=== PATIENT | female | born 1955 | race Caucasian/White ===

== ENCOUNTER 2018-10-31 13:51 | Inpatient (IN) ==
[2018-10-31] MEDS ORDERED: CEFUROXIME INJ 1,500 MG in SODIUM CHLORIDE 0.9% 100 ML IV ONE (16:11)
[2018-10-31] MEDS ORDERED: SODIUM CHLORIDE 0.9% 1,000 ML IV SCH (16:30)
[2018-10-31 17:21] LABS: Basophils # 0.1 10*3/uL (0.0-0.2); Basophils % 0.8 % (0.0-0.8); Eosinophils # 0.4 10*3/uL (0.0-0.87); Eosinophils % 4.6 % (0.00-10.9); Hemoglobin 13.8 GM/DL (12.0-16.0); Immature Granulocytes % 0.4 %; Immature Granulocytes Absolute 0.03 #; Lymphocytes # 2.2 10*3/uL (1.4-4.0); Mean Corpuscular HGB Conc 31.4 GM/DL (32-36); Mean Corpuscular Hemoglobin 28 PG (27-34); Mean Corpuscular Volume 88.5 FL (87-102); Mean Platelet Volume 9.8 FL (9.6-12.0); Monocytes # 0.6 10*3/uL (0.11-0.8); Monocytes % 8.3 % (1.7-12.7); Neutrophils # 4.4 10*3/uL (1.4-7.4); Neutrophils % 56.9 % (38.7-73.9); Platelet Count 318 T/CUMM (130-400); Red Blood Count 4.97 MC/CUMM (3.8-5.5); Red Cell Distribution Width 12.9 % (9.3-17.3); White Blood Count 7.7 T/CUMM (4-12)
[2018-10-31] MEDS ORDERED: GLUCAGON 1 MG VIAL IM PRN (17:33)
[2018-10-31] MEDS ORDERED: DEXTROSE 50% 25 GM/50 ML SYRINGE IV PRN (17:33)
[2018-10-31 17:45] LABS: Albumin 4.1 G/DL (3.4-5.0); Bilirubin,Total 1.1 MG/DL (0.2-1.0); Osmolality,Calculated 278.5 MOS/KG (273-304); Potassium 3.4 MMOL/L (3.5-5.1); Total Protein 8.5 G/DL (6.4-8.3)
[2018-10-31] MEDS: CHLORHEXIDINE 4% SOLN 118 ML BOTTLE TOP SCH ×2 (17:50→23:45)
[2018-10-31] MEDS ORDERED: POTASSIUM CHLORIDE 20 MEQ TABLET PO PRN (17:51)
[2018-10-31] MEDS: NITROGLYCERIN 2% OINT 1 INCH/GM PACK TOP SCH ×2 (17:55→23:45)
[2018-10-31] MEDS: CHLORHEXIDINE 0.12% ORAL RINSE 60 ML BOTTLE SWISH/SPIT SCH (20:26)
[2018-10-31] MEDS: INSULIN LISPRO 100 UNIT/ML SUBCUT SCH (20:26)
[2018-10-31] MEDS ORDERED: DIAZEPAM 5 MG TABLET PO ONE (22:46)
[2018-11-01] MEDS ORDERED: TISSUE ADHESIVE 1 EACH APPLICATOR TOP ONE (04:50)
[2018-11-01] MEDS ORDERED: PAPAVERINE 60 MG/2 ML VIAL ONE (04:50)
[2018-11-01] MEDS ORDERED: VANCOMYCIN 1,000 MG VIAL ONE (04:51)
[2018-11-01] MEDS ORDERED: VANCOMYCIN INJ 1,000 MG in SODIUM CHLORIDE 0.9% 250 ML IV ONE (05:30)
[2018-11-01] MEDS ORDERED: HEPARIN/NACL 0.9% 2 UNITS/ML 500 ML IV ONE (05:40)
[2018-11-01] MEDS ORDERED: CALCIUM CHLORIDE 1,000 MG/10 ML VIAL IV ONE (05:40)
[2018-11-01] MEDS ORDERED: PHENYLEPHRINE DRIP 20 MG/250 ML PREMIX IV ONE (05:40)
[2018-11-01] MEDS ORDERED: ePHEDrine 50 MG/ML AMP ONE (05:41)
[2018-11-01] MEDS ORDERED: MIDAZOLAM 10 MG/2 ML VIAL ONE (05:41)
[2018-11-01] MEDS ORDERED: VECURONIUM 10 MG VIAL IV ONE (05:41)
[2018-11-01] MEDS ORDERED: ETOMIDATE 40 MG/20 ML VIAL IV ONE (05:41)
[2018-11-01] MEDS ORDERED: NITROGLYCERIN DRIP 50 MG/250 ML BOTTLE IV ONE ×2 (05:41→10:15)
[2018-11-01] MEDS ORDERED: AMINOCAPROIC ACID 5,000 MG/20 ML VIAL ONE (05:42)
[2018-11-01] MEDS ORDERED: SODIUM CHLORIDE 0.9% 1,000 ML IV ONE (05:42)
[2018-11-01] MEDS ORDERED: SODIUM CHLORIDE 0.9% 250 ML IV ONE (05:42)
[2018-11-01] MEDS ORDERED: LACTATED RINGERS 1,000 ML IV ONE (05:42)
[2018-11-01] MEDS: NITROGLYCERIN 2% OINT 1 INCH/GM PACK TOP SCH (05:45)
[2018-11-01] MEDS: CHLORHEXIDINE 4% SOLN 118 ML BOTTLE TOP SCH ×2 (05:46→09:26)
[2018-11-01] MEDS ORDERED: FAMOTIDINE 20 MG TABLET PO ONE (06:00)
[2018-11-01] MEDS ORDERED: DIAZEPAM 5 MG TABLET PO ONE (06:00)
[2018-11-01 07:54] LABS: ABG Base Excess -0.3 MMOL/L (-2.5-2.5); ABG HCO3 24.2 MMOL/L (20-26); ABG Oxygen Saturation 99.7 % (95-100); ABG PCO2 45.1 MM HG (35-48); ABG PH 7.359 (7.35-7.45); ABG TCO2 22.4 MMOL/L (23-27); Glucose Heart Surgery 221 MG/DL (74-106); Hematocrit Heart Surgery 39.8 PERCENT (37-47); Ionized Calcium Arterial 1.14 MMOL/L (1.21-1.46); PCO2 Patient Temp Arterial 45.1 MMHG; PH Patient Temp Arterial 7.359; Patient Temperature 37 CELCIUS; Potassium Heart/CVR 3.5 MMOL/L (3.5-5.1); Sodium Heart/CVR 139 MMOL/L (135-145)
[2018-11-01 08:37] LABS: Apearance,Urine CLEAR (Clear); Bilirubin,Urine Negative (Negative); Blood, Urine Negative (Negative); Glucose,Urine (UA) Negative (Negative); Granular Casts,Urine 1 /LPF (0-1); Ketones,Urine Negative (Negative); Nitrite,Urine Negative (Negative); Protein,Urine Negative; RBC,Urine 1 /HPF (0-4); Squamous Epithelial Cell,Urine Occasional /HPF (0-10); Urine Color Yellow (Yellow); Urine Specific Gravity 1.016 (1.001-1.035); Urine Urobilinogen < 2.0 EU/DL (0.2-1.0); WBC,Urine 1 /HPF (0-6)
[2018-11-01 09:11] LABS: Hematocrit Heart Surgery 23.6 PERCENT (37-47); Hemoglobin Heart Surgery 7.6 G/DL (12.0-16.0); PCO2 Patient Temp Venous 37.9 MM HG; PH Patient Temp Venous 7.448; PO2 Patient Temp Venous 36.3 MM HG; Potassium Heart/CVR 4.6 MMOL/L (3.5-5.1); VBG Base Excess 2.2 MEQ/L (0-4); VBG HCO3 26.1 MEQ/L (24-28); VBG Oxygen Saturation 72.4 %; VBG PCO2 37.9 MMHG (41-51); VBG PH 7.448; VBG PO2 36.3 MMHG (17-40)
[2018-11-01] MEDS: CHLORHEXIDINE 0.12% ORAL RINSE 60 ML BOTTLE SWISH/SPIT SCH (09:26)
[2018-11-01 09:42] LABS: Hematocrit Heart Surgery 26.4 PERCENT (37-47); Hemoglobin Heart Surgery 8.5 G/DL (12.0-16.0); PCO2 Patient Temp Venous 38.5 MM HG; PH Patient Temp Venous 7.424; PO2 Patient Temp Venous 38.6 MM HG; Potassium Heart/CVR 4.3 MMOL/L (3.5-5.1); VBG Base Excess 0.9 MEQ/L (0-4); VBG HCO3 24.9 MEQ/L (24-28); VBG Oxygen Saturation 74.2 %; VBG PCO2 38.5 MMHG (41-51); VBG PH 7.424; VBG PO2 38.6 MMHG (17-40)
[2018-11-01 09:58] LABS: ABG Base Excess -1.6 MMOL/L (-2.5-2.5); ABG HCO3 23.1 MMOL/L (20-26); ABG Oxygen Saturation 99.3 % (95-100); ABG PCO2 41.2 MM HG (35-48); ABG PH 7.367 (7.35-7.45); ABG TCO2 21.7 MMOL/L (23-27); Glucose Heart Surgery 379 MG/DL (74-106); Hematocrit Heart Surgery 29.9 PERCENT (37-47); Hemoglobin Heart Surgery 9.7 G/DL (12.0-16.0); Ionized Calcium Arterial 1.13 MMOL/L (1.21-1.46); PCO2 Patient Temp Arterial 41.2 MMHG; PH Patient Temp Arterial 7.367; Patient Temperature 37 CELCIUS; Potassium Heart/CVR 3.6 MMOL/L (3.5-5.1); Sodium Heart/CVR 132 MMOL/L (135-145)
[2018-11-01] MEDS ORDERED: DEXTROSE 5% KCL 20 MEQ 20 MEQ/1,000 ML BAG IV ONE (10:02)
[2018-11-01] MEDS ORDERED: MANNITOL 100 GM/500 ML BAG IV ONE (10:02)
[2018-11-01] MEDS ORDERED: ALBUMIN 25% 25 GM/100 ML VIAL IV ONE (10:03)
[2018-11-01] MEDS ORDERED: FUROSEMIDE 20 MG/2 ML VIAL ONE (10:03)
[2018-11-01] MEDS ORDERED: PROTAMINE SULFATE 250 MG/25 ML VIAL IV ONE (10:03)
[2018-11-01] MEDS ORDERED: methylPREDNISolone SOD SUC 1,000 MG/8 ML VIAL ONE (10:03)
[2018-11-01] MEDS ORDERED: HEPARIN 10,000 UNIT/10 ML VIAL ONE (10:03)
[2018-11-01] MEDS ORDERED: SODIUM BICARBONATE 50 MEQ/50 ML SYRINGE IV ONE (10:03)
[2018-11-01] MEDS ORDERED: MAGNESIUM SULFATE 10 GM/20 ML VIAL IV ONE (10:03)
[2018-11-01] MEDS ORDERED: PROTAMINE SULFATE 50 MG/5 ML VIAL IV ONE (10:04)
[2018-11-01] MEDS ORDERED: MAGNESIUM SULF RIDER 2 GM in PREMIX 1 EACH IV PRN (10:38)
[2018-11-01] MEDS ORDERED: CHLORHEXIDINE 4% SOLN 118 ML BOTTLE TOP PRN (10:38)
[2018-11-01] MEDS ORDERED: MAGNESIUM SULF RIDER 4 GM in PREMIX 1 EACH IV PRN (10:38)
[2018-11-01] MEDS ORDERED: ACETAMINOPHEN 650 MG SUPP RECTAL PRN (10:38)
[2018-11-01] MEDS ORDERED: MIDAZOLAM 2 MG/2 ML VIAL IV PRN (10:38)
[2018-11-01] MEDS ORDERED: DEXTROSE 50% 25 GM/50 ML VIAL IV PRN ×2 (10:38)
[2018-11-01] MEDS ORDERED: SODIUM CHLORIDE 0.9% 250 ML IV PRN (10:38)
[2018-11-01] MEDS ORDERED: CALCIUM CHLORIDE 1,000 MG/10 ML SYRINGE IV PRN (10:38)
[2018-11-01] MEDS ORDERED: METOPROLOL TARTRATE 5 MG/5 ML VIAL IV ONE ×2 (10:49→10:51)
[2018-11-01] MEDS ORDERED: NITROGLYCERIN DRIP 50 MG/250 ML BOTTLE IV PRN (10:52)
[2018-11-01] MEDS ORDERED: NITROPRUSSIDE 100 MG in DEXTROSE 5% 250 ML IV PRN (10:54)
[2018-11-01] MEDS: SODIUM CHLORIDE 0.45% 1,000 ML IV SCH ×2 (10:59→11:00)
[2018-11-01] MEDS ORDERED: DEXTROSE 50% 25 GM/50 ML SYRINGE IV PRN ×2 (11:00)
[2018-11-01] MEDS ORDERED: SEVOFLURANE 1 UNIT/15 MINUTE INH ONE (11:02)
[2018-11-01 11:20] LABS: ABG HCO3 21.1 MMOL/L (20-26); ABG Oxygen Saturation 99.6 % (95-100); ABG PCO2 42.1 MM HG (35-48); ABG PH 7.324 (7.35-7.45); ABG TCO2 19.8 MMOL/L (23-27); Glucose Heart Surgery 286 MG/DL (74-106); Hematocrit Heart Surgery 34.6 PERCENT (37-47); Hemoglobin Heart Surgery 11.2 G/DL (12.0-16.0); Potassium Heart/CVR 3.6 MMOL/L (3.5-5.1)
[2018-11-01 11:24] LABS: Basophils # 0.1 10*3/uL (0.0-0.2); Basophils % 0.6 % (0.0-0.8); Eosinophils # 0.2 10*3/uL (0.0-0.87); Eosinophils % 1.7 % (0.00-10.9); Hematocrit 33.5 VOL% (35.7-47.0); Immature Granulocytes % 0.7 %; Lymphocytes # 2.1 10*3/uL (1.4-4.0); Lymphocytes % 15.1 % (21.3-54.2); Mean Corpuscular HGB Conc 31.9 GM/DL (32-36); Mean Corpuscular Hemoglobin 28 PG (27-34); Mean Corpuscular Volume 86.8 FL (87-102); Mean Platelet Volume 10.4 FL (9.6-12.0); Monocytes # 0.7 10*3/uL (0.11-0.8); Neutrophils # 10.9 10*3/uL (1.4-7.4); Neutrophils % 76.9 % (38.7-73.9); Red Cell Distribution Width 12.9 % (9.3-17.3)
[2018-11-01 11:28] LABS: White Blood Count 14.2 T/CUMM (4-12)
[2018-11-01] MEDS: POTASSIUM CHLORIDE RIDER 20 MEQ in PREMIX 1 EACH IV PRN ×3 (11:28→17:21)
[2018-11-01 11:29] LABS: Hemoglobin 10.7 GM/DL (12.0-16.0); Platelet Count 268 T/CUMM (130-400); Red Blood Count 3.86 MC/CUMM (3.8-5.5)
[2018-11-01] MEDS: ALBUMIN 5% 12.5 GM in PREMIX 1 EACH IV PRN ×2 (11:30→11:53)
[2018-11-01 11:32] LABS: PT Patient Result 10.5 SECS; Partial Thromboplastin Time 25.9 SECS (0-40)
[2018-11-01 11:41] LABS: Blood Urea Nitrogen 6 MG/DL (7-18); Calcium 8.5 MG/DL (8.5-10.1); Glucose 280 MG/DL (74-106); Osmolality,Calculated 284.5 MOS/KG (273-304); Potassium 3.7 MMOL/L (3.5-5.1); Sodium 139 MMOL/L (136-145)
[2018-11-01] MEDS: INSULIN REGULAR DRIP 100 ML IV SCH (11:54)
[2018-11-01] MEDS ORDERED: ASPIRIN 325 MG TABLET PO ONE (11:59)
[2018-11-01] MEDS ORDERED: ASPIRIN CHEW 81 MG TABLET PO ONE (12:00)
[2018-11-01] MEDS: POTASSIUM CHLORIDE RIDER 10 MEQ in PREMIX 1 EACH IV PRN (12:16)
[2018-11-01] MEDS: INSULIN LISPRO 100 UNIT/ML SUBCUT SCH (12:17)
[2018-11-01] MEDS: MORPHINE 4 MG/1 ML VIAL IV PRN ×2 (14:13→19:59)
[2018-11-01] MEDS: INSULIN REGULAR 100 UNIT/ML IV PRN ×2 (14:13→16:11)
[2018-11-01 16:19] LABS: ABG Base Excess -4.2 MMOL/L (-2.5-2.5); ABG Oxygen Saturation 98.7 % (95-100); ABG PCO2 38.4 MM HG (35-48); ABG PH 7.346 (7.35-7.45); ABG TCO2 18.2 MMOL/L (23-27); Glucose Heart Surgery 231 MG/DL (74-106); Hematocrit Heart Surgery 43.6 PERCENT (37-47); Hemoglobin Heart Surgery 14.2 G/DL (12.0-16.0); Potassium Heart/CVR 3.3 MMOL/L (3.5-5.1)
[2018-11-01] MEDS: ONDANSETRON 4 MG/2 ML VIAL IV PRN (16:54)
[2018-11-01] MEDS ORDERED: PROMETHAZINE INJ 12.5 MG in SODIUM CHLORIDE 0.9% 50 ML IV PRN (17:46)
[2018-11-01] MEDS ORDERED: ONDANSETRON 4 MG/2 ML VIAL IV ONE (17:46)
[2018-11-01] MEDS: PROMETHAZINE 25 MG/1 ML VIAL IV PRN (18:42)
[2018-11-01] MEDS ORDERED: LACTATED RINGERS 500 ML IV ONE (19:23)
[2018-11-01] MEDS ORDERED: CHLORHEXIDINE 0.12% ORAL RINSE 60 ML BOTTLE SWISH/SPIT SCH (21:00)
[2018-11-01] MEDS: VANCOMYCIN INJ 1,000 MG in SODIUM CHLORIDE 0.9% 250 ML IV SCH (23:30)
[2018-11-02] MEDS: SODIUM CHLORIDE 0.45% 1,000 ML IV SCH ×2 (00:04→07:26)
[2018-11-02] MEDS: MORPHINE 4 MG/1 ML VIAL IV PRN ×3 (00:10→14:59)
[2018-11-02] MEDS: ONDANSETRON 4 MG/2 ML VIAL IV PRN (03:14)
[2018-11-02] MEDS ORDERED: ONDANSETRON 4 MG/2 ML VIAL IV ONE (03:28)
[2018-11-02] MEDS: INSULIN REGULAR DRIP 100 ML IV SCH ×2 (03:58→10:20)
[2018-11-02] MEDS: PROMETHAZINE 25 MG/1 ML VIAL IV PRN ×2 (04:00→10:28)
[2018-11-02 04:16] LABS: Basophils % 0.1 % (0.0-0.8); Hematocrit 31.8 VOL% (35.7-47.0); Immature Granulocytes % 0.7 %; Immature Granulocytes Absolute 0.11 #; Lymphocytes # 0.9 10*3/uL (1.4-4.0); Lymphocytes % 5.6 % (21.3-54.2); Mean Corpuscular HGB Conc 31.4 GM/DL (32-36); Mean Corpuscular Hemoglobin 28 PG (27-34); Mean Corpuscular Volume 89.1 FL (87-102); Mean Platelet Volume 10.4 FL (9.6-12.0); Monocytes % 6.9 % (1.7-12.7); Neutrophils # 13.1 10*3/uL (1.4-7.4); Neutrophils % 86.7 % (38.7-73.9); Platelet Count 246 T/CUMM (130-400); Red Blood Count 3.57 MC/CUMM (3.8-5.5); White Blood Count 15.1 T/CUMM (4-12)
[2018-11-02 04:33] LABS: Osmolality,Calculated 276.5 MOS/KG (273-304)
[2018-11-02] MEDS ORDERED: PHENOL 1.4% THROAT SPRAY 177 ML BOTTLE PO PRN (06:22)
[2018-11-02] MEDS ORDERED: FUROSEMIDE 40 MG/4 ML VIAL IV ONE (08:36)
[2018-11-02] MEDS: PANTOPRAZOLE 40 MG VIAL IV SCH (09:30)
[2018-11-02] MEDS: CARVEDILOL 3.125 MG TABLET PO SCH ×2 (09:32→22:38)
[2018-11-02] MEDS: ASPIRIN EC 325 MG TABLET PO SCH (09:32)
[2018-11-02] MEDS: FUROSEMIDE 40 MG TABLET PO SCH (09:32)
[2018-11-02] MEDS: ONDANSETRON 4 MG/2 ML VIAL IV SCH ×4 (10:10→22:38)
[2018-11-02] MEDS: VANCOMYCIN INJ 1,000 MG in SODIUM CHLORIDE 0.9% 250 ML IV SCH (11:21)
[2018-11-02] MEDS: INSULIN REGULAR 100 UNIT/ML SUBCUT SCH ×2 (12:59→18:36)
[2018-11-02] MEDS ORDERED: METOPROLOL TARTRATE 5 MG/5 ML VIAL IV ONE (13:11)
[2018-11-02] MEDS: MORPHINE 10 MG/1 ML VIAL IV PRN ×3 (18:24→23:54)
[2018-11-02] MEDS: ATORVASTATIN 40 MG TABLET PO SCH (22:38)
[2018-11-02] MEDS: PROMETHAZINE 25 MG TABLET PO PRN (22:40)
[2018-11-03] MEDS: INSULIN REGULAR 100 UNIT/ML SUBCUT SCH ×4 (01:13→18:50)
[2018-11-03] MEDS: VANCOMYCIN INJ 1,000 MG in SODIUM CHLORIDE 0.9% 250 ML IV SCH ×2 (01:22→11:01)
[2018-11-03] MEDS: ONDANSETRON 4 MG/2 ML VIAL IV SCH ×6 (04:16→21:40)
[2018-11-03 05:22] LABS: Basophils % 0.1 % (0.0-0.8); Eosinophils % 0.1 % (0.00-10.9); Hematocrit 30.8 VOL% (35.7-47.0); Hemoglobin 9.7 GM/DL (12.0-16.0); Immature Granulocytes % 0.8 %; Immature Granulocytes Absolute 0.11 #; Lymphocytes # 1.5 10*3/uL (1.4-4.0); Lymphocytes % 10.7 % (21.3-54.2); Mean Corpuscular HGB Conc 31.5 GM/DL (32-36); Mean Corpuscular Hemoglobin 28 PG (27-34); Mean Corpuscular Volume 89.5 FL (87-102); Mean Platelet Volume 10.6 FL (9.6-12.0); Monocytes # 1.4 10*3/uL (0.11-0.8); Monocytes % 10.2 % (1.7-12.7); Neutrophils % 78.1 % (38.7-73.9); Platelet Count 267 T/CUMM (130-400); Red Blood Count 3.44 MC/CUMM (3.8-5.5); Red Cell Distribution Width 13.5 % (9.3-17.3)
[2018-11-03 05:54] LABS: Calcium 8.2 MG/DL (8.5-10.1); Osmolality,Calculated 282.4 MOS/KG (273-304); Potassium 3.8 MMOL/L (3.5-5.1)
[2018-11-03] MEDS: MORPHINE 10 MG/1 ML VIAL IV PRN ×4 (06:27→21:39)
[2018-11-03] MEDS ORDERED: BISACODYL 5 MG TABLET PO PRN (09:46)
[2018-11-03] MEDS: ASPIRIN EC 325 MG TABLET PO SCH (10:44)
[2018-11-03] MEDS: FUROSEMIDE 40 MG TABLET PO SCH (10:44)
[2018-11-03] MEDS: DOCUSATE SODIUM 100 MG CAPSULE PO PRN (10:44)
[2018-11-03] MEDS: CARVEDILOL 6.25 MG TABLET PO SCH ×2 (10:45→21:39)
[2018-11-03] MEDS: PANTOPRAZOLE 40 MG VIAL IV SCH (10:46)
[2018-11-03] MEDS: METOCLOPRAMIDE 5 MG TABLET PO SCH ×2 (10:59→17:09)
[2018-11-03] MEDS: NICOTINE 21 MG/24 HR PATCH TRANSDERM SCH (17:42)
[2018-11-03] MEDS ORDERED: DICLOFENAC SODIUM 75 MG PO SCH (21:00)
[2018-11-03] MEDS: ATORVASTATIN 40 MG TABLET PO SCH (21:40)
[2018-11-03] MEDS: CARVEDILOL 3.125 MG TABLET PO SCH (21:45)
[2018-11-04] MEDS: INSULIN REGULAR 100 UNIT/ML SUBCUT SCH ×4 (01:14→18:01)
[2018-11-04] MEDS: ONDANSETRON 4 MG/2 ML VIAL IV SCH ×6 (01:57→21:21)
[2018-11-04] MEDS: MORPHINE 10 MG/1 ML VIAL IV PRN ×2 (01:57→04:30)
[2018-11-04 04:28] LABS: Basophils % 0.2 % (0.0-0.8); Eosinophils # 0.1 10*3/uL (0.0-0.87); Eosinophils % 0.4 % (0.00-10.9); Hematocrit 31.4 VOL% (35.7-47.0); Hemoglobin 9.9 GM/DL (12.0-16.0); Immature Granulocytes Absolute 0.14 #; Lymphocytes # 2.4 10*3/uL (1.4-4.0); Lymphocytes % 16.9 % (21.3-54.2); Mean Corpuscular HGB Conc 31.5 GM/DL (32-36); Mean Corpuscular Hemoglobin 28 PG (27-34); Mean Corpuscular Volume 89.5 FL (87-102); Mean Platelet Volume 10.2 FL (9.6-12.0); Monocytes # 1.4 10*3/uL (0.11-0.8); Monocytes % 9.7 % (1.7-12.7); Neutrophils # 10.3 10*3/uL (1.4-7.4); Neutrophils % 71.8 % (38.7-73.9); Platelet Count 307 T/CUMM (130-400); Red Blood Count 3.51 MC/CUMM (3.8-5.5); Red Cell Distribution Width 13.2 % (9.3-17.3); White Blood Count 14.4 T/CUMM (4-12)
[2018-11-04 04:29] LABS: Calcium 8.2 MG/DL (8.5-10.1); Osmolality,Calculated 282.5 MOS/KG (273-304); Potassium 3.6 MMOL/L (3.5-5.1)
[2018-11-04] MEDS: PANTOPRAZOLE 40 MG VIAL IV SCH (08:19)
[2018-11-04] MEDS: METOCLOPRAMIDE 5 MG TABLET PO SCH ×3 (08:19→17:22)
[2018-11-04] MEDS: CARVEDILOL 6.25 MG TABLET PO SCH ×2 (08:19→21:21)
[2018-11-04] MEDS: ASPIRIN EC 325 MG TABLET PO SCH (08:19)
[2018-11-04] MEDS: FUROSEMIDE 40 MG TABLET PO SCH (08:19)
[2018-11-04] MEDS: MORPHINE 4 MG/1 ML VIAL IV PRN ×3 (08:19→21:22)
[2018-11-04] MEDS: DOCUSATE SODIUM 100 MG CAPSULE PO PRN (08:19)
[2018-11-04] MEDS: NICOTINE 21 MG/24 HR PATCH TRANSDERM SCH (08:52)
[2018-11-04] MEDS: ATORVASTATIN 40 MG TABLET PO SCH (21:21)
[2018-11-04] MEDS: LOSARTAN 25 MG TABLET PO SCH (21:21)
[2018-11-05] MEDS: INSULIN REGULAR 100 UNIT/ML SUBCUT SCH ×4 (00:10→17:47)
[2018-11-05] MEDS: PROMETHAZINE 25 MG TABLET PO PRN (00:41)
[2018-11-05] MEDS: ONDANSETRON 4 MG/2 ML VIAL IV SCH ×7 (02:29→22:28)
[2018-11-05] MEDS: METOCLOPRAMIDE 5 MG TABLET PO SCH ×3 (06:42→15:37)
[2018-11-05] MEDS: PANTOPRAZOLE 40 MG VIAL IV SCH (08:22)
[2018-11-05] MEDS: LOSARTAN 25 MG TABLET PO SCH ×2 (08:22→22:27)
[2018-11-05] MEDS: CARVEDILOL 6.25 MG TABLET PO SCH ×2 (08:23→22:23)
[2018-11-05] MEDS: ASPIRIN EC 325 MG TABLET PO SCH (08:23)
[2018-11-05] MEDS: NICOTINE 21 MG/24 HR PATCH TRANSDERM SCH (08:23)
[2018-11-05] MEDS: FUROSEMIDE 40 MG TABLET PO SCH (08:23)
[2018-11-05] MEDS: DOCUSATE SODIUM 100 MG CAPSULE PO PRN (08:23)
[2018-11-05] MEDS: ATORVASTATIN 40 MG TABLET PO SCH (22:27)
[2018-11-06] MEDS: INSULIN REGULAR 100 UNIT/ML SUBCUT SCH ×3 (01:03→12:55)
[2018-11-06] MEDS: ONDANSETRON 4 MG/2 ML VIAL IV SCH ×3 (02:26→11:22)
[2018-11-06 05:26] LABS: Basophils # 0.1 10*3/uL (0.0-0.2); Basophils % 0.4 % (0.0-0.8); Eosinophils # 0.4 10*3/uL (0.0-0.87); Hematocrit 33.1 VOL% (35.7-47.0); Hemoglobin 10.6 GM/DL (12.0-16.0); Immature Granulocytes % 0.6 %; Immature Granulocytes Absolute 0.07 #; Lymphocytes # 2.9 10*3/uL (1.4-4.0); Lymphocytes % 24.6 % (21.3-54.2); Mean Corpuscular Hemoglobin 28 PG (27-34); Mean Corpuscular Volume 86.9 FL (87-102); Mean Platelet Volume 10.2 FL (9.6-12.0); Monocytes # 1.2 10*3/uL (0.11-0.8); Monocytes % 9.8 % (1.7-12.7); Neutrophils # 7.2 10*3/uL (1.4-7.4); Neutrophils % 61.6 % (38.7-73.9); Platelet Count 442 T/CUMM (130-400); Red Blood Count 3.81 MC/CUMM (3.8-5.5); Red Cell Distribution Width 12.8 % (9.3-17.3); White Blood Count 11.7 T/CUMM (4-12)
[2018-11-06 05:38] LABS: Calcium 8.4 MG/DL (8.5-10.1); Osmolality,Calculated 281.3 MOS/KG (273-304); Potassium 3.3 MMOL/L (3.5-5.1)
[2018-11-06] MEDS: POTASSIUM CHLORIDE RIDER 10 MEQ in PREMIX 1 EACH IV PRN ×4 (06:08→09:48)
[2018-11-06] MEDS: METOCLOPRAMIDE 5 MG TABLET PO SCH ×2 (08:10→11:22)
[2018-11-06] MEDS: PROMETHAZINE 25 MG TABLET PO PRN (08:10)
[2018-11-06] MEDS: NICOTINE 21 MG/24 HR PATCH TRANSDERM SCH (08:23)
[2018-11-06] MEDS: ASPIRIN EC 325 MG TABLET PO SCH (08:23)
[2018-11-06] MEDS: FUROSEMIDE 40 MG TABLET PO SCH (08:23)
[2018-11-06] MEDS: LOSARTAN 25 MG TABLET PO SCH (08:23)
[2018-11-06] MEDS: CARVEDILOL 6.25 MG TABLET PO SCH (08:23)
[2018-11-06] MEDS: PANTOPRAZOLE 40 MG VIAL IV SCH (08:24)
[2018-11-06 11:59] VITALS: BP 127/70
[2018-11-06] MEDS ORDERED: INFLUENZA VIRUS VACCINE 0.5 ML SYRINGE IM ONE (16:00)
== END 2018-11-06 13:27 | disposition home health service (06) | DRG 236 ==
LOC: N.CC 16:42 → N.CVR 11-01 08:00 → N.ICU 11-02 15:59 → N.TELES 11-05 14:45
PROVIDERS: ADMIT Thoracic Surgery (Cardiothoracic Vascular Surgery); ATTEND Thoracic Surgery (Cardiothoracic Vascular Surgery)

== ENCOUNTER 2019-08-03 20:15 | Inpatient (IN) ==
[2019-08-03] MEDS ORDERED: BISACODYL 5 MG TABLET PO PRN (22:59)
[2019-08-03] MEDS ORDERED: MORPHINE 4 MG/1 ML VIAL IV PRN (22:59)
[2019-08-03] MEDS ORDERED: ONDANSETRON 4 MG/2 ML VIAL IV PRN (22:59)
[2019-08-03] MEDS ORDERED: diphenhydrAMINE CAP 25 MG CAPSULE PO PRN (22:59)
[2019-08-03] MEDS ORDERED: DEXTROSE 50% 25 GM/50 ML VIAL IV PRN (22:59)
[2019-08-03] MEDS ORDERED: MAGNESIUM SULF RIDER 4 GM in PREMIX 1 EACH IV PRN (22:59)
[2019-08-03] MEDS ORDERED: guaiFENesin/DM ER 600-30 MG TABLET PO PRN (22:59)
[2019-08-03] MEDS ORDERED: GLUCAGON 1 MG VIAL IM PRN (22:59)
[2019-08-03] MEDS ORDERED: NICOTINE 21 MG/24 HR PATCH TRANSDERM PRN (22:59)
[2019-08-03] MEDS ORDERED: MAGNESIUM SULF RIDER 2 GM in PREMIX 1 EACH IV PRN (22:59)
[2019-08-03] MEDS ORDERED: cefTRIAXone 1,000 MG in SYRINGE 1 EACH IV SCH (23:00)
[2019-08-03] MEDS: ENOXAPARIN 40 MG/0.4 ML SYRINGE SUBCUT SCH (23:25)
[2019-08-03 23:41] LABS: Basophils # 0.1 10*3/uL (0.0-0.2); Basophils % 0.7 % (0.0-0.8); Eosinophils # 0.2 10*3/uL (0.0-0.87); Eosinophils % 2.9 % (0.00-10.9); Hematocrit 34.1 VOL% (35.7-47.0); Hemoglobin 10.4 GM/DL (12.0-16.0); Immature Granulocytes % 0.4 %; Immature Granulocytes Absolute 0.03 #; Lymphocytes # 2.6 10*3/uL (1.4-4.0); Lymphocytes % 31.2 % (21.3-54.2); Mean Corpuscular HGB Conc 30.5 GM/DL (32-36); Mean Corpuscular Volume 81.4 FL (87-102); Mean Platelet Volume 10.2 FL (9.6-12.0); Monocytes % 7.2 % (1.7-12.7); Neutrophils % 57.6 % (38.7-73.9); Platelet Count 370 T/CUMM (130-400); Red Blood Count 4.19 MC/CUMM (3.8-5.5); Red Cell Distribution Width 14.8 % (9.3-17.3); White Blood Count 8.3 T/CUMM (4-12)
[2019-08-04 00:01] LABS: Alanine Aminotransferase 20 U/L (13-56); Albumin 3.5 G/DL (3.4-5.0); Alkaline Phosphatase 129 U/L (45-117); Aspartate Amino Transferase 12 U/L (0-37); Bilirubin,Total < 0.39 MG/DL (0.2-1.0); Blood Urea Nitrogen 5 MG/DL (7-18); Calcium 8.8 MG/DL (8.5-10.1); Estimated Glom Filtration Rate 72 ML/MIN; Glucose 177 MG/DL (74-106); Osmolality,Calculated 288.7 MOS/KG (273-304); Total Protein 7.4 G/DL (6.4-8.3)
[2019-08-04 00:02] LABS: Risk Ratio 4.11; VLDL CHOLESTEROL 38.6 MG/DL
[2019-08-04] MEDS: POTASSIUM CHLORIDE 20 MEQ TABLET PO PRN ×3 (00:35→04:45)
[2019-08-04 00:45] LABS: Apearance,Urine Slightly Hazy (Clear); Bacteria,Urine Few /HPF (Few); Bilirubin,Urine Negative (Negative); Blood, Urine Small mg/dL (Negative); Glucose,Urine (UA) Negative (Negative); Ketones,Urine Negative (Negative); Nitrite,Urine Negative (Negative); Protein,Urine Negative; RBC,Urine 3 /HPF (0-4); Squamous Epithelial Cell,Urine Moderate /HPF (0-10); Urine Color Yellow (Yellow); Urine Urobilinogen < 2.0 EU/DL (0.2-1.0); WBC,Urine 223 /HPF (0-6)
[2019-08-04 07:16] LABS: Basophils # 0.1 10*3/uL (0.0-0.2); Basophils % 0.7 % (0.0-0.8); Eosinophils # 0.3 10*3/uL (0.0-0.87); Hematocrit 32.1 VOL% (35.7-47.0); Immature Granulocytes % 0.3 %; Immature Granulocytes Absolute 0.02 #; Lymphocytes # 2.4 10*3/uL (1.4-4.0); Lymphocytes % 32.2 % (21.3-54.2); Mean Corpuscular HGB Conc 31.2 GM/DL (32-36); Mean Corpuscular Volume 80.5 FL (87-102); Mean Platelet Volume 10.3 FL (9.6-12.0); Monocytes % 8.2 % (1.7-12.7); Neutrophils % 54.6 % (38.7-73.9); Platelet Count 359 T/CUMM (130-400); Red Blood Count 3.99 MC/CUMM (3.8-5.5); Red Cell Distribution Width 14.7 % (9.3-17.3); White Blood Count 7.5 T/CUMM (4-12)
[2019-08-04 07:45] LABS: Alanine Aminotransferase 19 U/L (13-56); Albumin 3.2 G/DL (3.4-5.0); Alkaline Phosphatase 123 U/L (45-117); Aspartate Amino Transferase 12 U/L (0-37); Bilirubin,Total < 0.39 MG/DL (0.2-1.0); Blood Urea Nitrogen 4 MG/DL (7-18); Calcium 8.4 MG/DL (8.5-10.1); Estimated Glom Filtration Rate 83 ML/MIN; Glucose 147 MG/DL (74-106)
[2019-08-04] MEDS: INSULIN REGULAR 100 UNIT/ML SUBCUT SCH ×4 (08:48→22:06)
[2019-08-04] MEDS ORDERED: LOSARTAN 25 MG TABLET PO SCH (09:00)
[2019-08-04] MEDS: carvediloL 6.25 MG TABLET PO SCH ×2 (09:11→22:09)
[2019-08-04] MEDS: ASPIRIN 325 MG TABLET PO SCH (09:11)
[2019-08-04] MEDS: FUROSEMIDE 40 MG TABLET PO SCH (09:11)
[2019-08-04] MEDS: LOSARTAN 25 MG TABLET PO SCH ×2 (12:46→22:08)
[2019-08-04] MEDS: predniSONE 20 MG TABLET PO SCH (15:57)
[2019-08-04] MEDS: metFORMIN 500 MG TABLET PO SCH ×2 (15:57→22:09)
[2019-08-04] MEDS: ACETAMINOPHEN 325 MG TABLET PO PRN ×2 (16:36→20:51)
[2019-08-04] MEDS: ALBUTEROL/IPRATROPIUM 3 ML NEB RESP TX SCH ×2 (17:14→19:53)
[2019-08-04] MEDS ORDERED: cefTRIAXone 1,000 MG in SYRINGE 1 EACH IV SCH (20:00)
[2019-08-04] MEDS ORDERED: ATORVASTATIN 40 MG TABLET PO SCH ×2 (21:00)
[2019-08-04] MEDS ORDERED: DICLOFENAC SODIUM 50 MG TABLET PO SCH (21:00)
[2019-08-04] MEDS ORDERED: ATORVASTATIN 80 MG TABLET PO SCH (21:00)
[2019-08-04] MEDS: guaiFENesin/DM ER 600-30 MG TABLET PO SCH (21:58)
[2019-08-04] MEDS: DOXYCYCLINE HYCLATE 100 MG CAPSULE PO SCH (22:00)
[2019-08-04] MEDS: OMEGA 3 ACID ETHYL ESTERS 1 GM CAPSULE PO SCH (22:02)
[2019-08-04] MEDS: ENOXAPARIN 40 MG/0.4 ML SYRINGE SUBCUT SCH (22:10)
[2019-08-05] MEDS ORDERED: FAMOTIDINE 20 MG TABLET PO ONE (00:03)
[2019-08-05] MEDS: ALBUTEROL/IPRATROPIUM 3 ML NEB RESP TX SCH ×2 (00:35→07:15)
[2019-08-05 06:00] LABS: Basophils % 0.3 % (0.0-0.8); Eosinophils % 0.1 % (0.00-10.9); Hematocrit 32.8 VOL% (35.7-47.0); Hemoglobin 10.1 GM/DL (12.0-16.0); Immature Granulocytes % 0.5 %; Immature Granulocytes Absolute 0.04 #; Lymphocytes # 1.5 10*3/uL (1.4-4.0); Lymphocytes % 18.7 % (21.3-54.2); Mean Corpuscular HGB Conc 30.8 GM/DL (32-36); Mean Corpuscular Volume 81.2 FL (87-102); Mean Platelet Volume 10.9 FL (9.6-12.0); Monocytes % 5.8 % (1.7-12.7); Neutrophils % 74.6 % (38.7-73.9); Platelet Count 360 T/CUMM (130-400); Red Blood Count 4.04 MC/CUMM (3.8-5.5); Red Cell Distribution Width 14.6 % (9.3-17.3); White Blood Count 7.8 T/CUMM (4-12)
[2019-08-05 06:38] LABS: Albumin 3.4 G/DL (3.4-5.0); Bilirubin,Total 0.4 MG/DL (0.2-1.0); Calcium 8.8 MG/DL (8.5-10.1); Osmolality,Calculated 291.8 MOS/KG (273-304); Total Protein 7.1 G/DL (6.4-8.3)
[2019-08-05 08:53] VITALS: BP 146/81
[2019-08-05] MEDS ORDERED: GLIMEPIRIDE 2 MG TABLET PO SCH (09:00)
[2019-08-05] MEDS: OMEGA 3 ACID ETHYL ESTERS 1 GM CAPSULE PO SCH (09:28)
[2019-08-05] MEDS: INSULIN REGULAR 100 UNIT/ML SUBCUT SCH (09:28)
[2019-08-05] MEDS: LOSARTAN 25 MG TABLET PO SCH (09:29)
[2019-08-05] MEDS: metFORMIN 500 MG TABLET PO SCH (09:29)
[2019-08-05] MEDS: FUROSEMIDE 40 MG TABLET PO SCH (09:29)
[2019-08-05] MEDS: DOXYCYCLINE HYCLATE 100 MG CAPSULE PO SCH (09:29)
[2019-08-05] MEDS: predniSONE 20 MG TABLET PO SCH (09:29)
[2019-08-05] MEDS: ASPIRIN 325 MG TABLET PO SCH (09:29)
[2019-08-05] MEDS: carvediloL 6.25 MG TABLET PO SCH (09:30)
[2019-08-05] MEDS: guaiFENesin/DM ER 600-30 MG TABLET PO SCH (09:30)
== END 2019-08-05 12:31 | disposition home or self-care (01) | DRG 312 ==
LOC: N.TELES 21:49 → SUATTDRO 21:49 → INTOOBSV 21:49 → N.TELES 08-04 16:13
PROVIDERS: ADMIT Internal Medicine; ATTEND Internal Medicine

== ENCOUNTER 2022-08-09 12:44 | Observation (INO) ==
[2022-08-09] MEDS ORDERED: SODIUM CHLORIDE 0.9% 500 ML IV STA (13:24)
[2022-08-09 13:43] LABS: Alanine Aminotransferase 18 U/L (13-56); Albumin 3.7 G/DL (3.4-5.0); Alkaline Phosphatase 172 U/L (45-117); Aspartate Amino Transferase 12 U/L (0-37); Bilirubin,Total < 0.39 MG/DL (0.20-1.00); Blood Urea Nitrogen 12 MG/DL (7-18); Calcium 8.8 MG/DL (8.5-10.1); Carbon Dioxide 21 MMOL/L (21-32); Chloride 105 MMOL/L (98-107); Glucose 294 MG/DL (74-106); Potassium 4.3 MMOL/L (3.5-5.1); Sodium 136 MMOL/L (136-145); Total Protein 8.4 G/DL (6.4-8.2)
[2022-08-09 14:03] LABS: Basophils # 0.1 10*3/uL (0.0-0.2); Eosinophils # 0.1 10*3/uL (0.0-0.87); Eosinophils % 1.1 % (0.00-10.9); Hematocrit 27.9 VOL% (35.7-47.0); Hemoglobin 7.8 GM/DL (12.0-16.0); Immature Granulocytes Absolute 0.12 #; Lymphocytes # 1.1 10*3/uL (1.4-4.0); Lymphocytes % 9.1 % (21.3-54.2); Mean Corpuscular Volume 79.7 FL (87-102); Mean Platelet Volume 10.3 FL (9.6-12.0); Monocytes # 0.5 10*3/uL (0.11-0.8); Neutrophils % 83.8 % (38.7-73.9); Platelet Count 650 T/CUMM (130-400); White Blood Count 11.8 T/CUMM (4-12)
[2022-08-09 14:04] LABS: Platelet Estimate Increased
[2022-08-09 14:05] LABS: Anisocytosis 1+; Hypochromia 1+; Microcytosis 1+; Polychromasia Slight
[2022-08-09] MEDS ORDERED: ONDANSETRON 4 MG/2 ML VIAL IV STA (14:51)
[2022-08-09] MEDS ORDERED: ONDANSETRON 4 MG/2 ML VIAL ONE (14:52)
[2022-08-09] MEDS ORDERED: hydrALAZINE 20 MG/1 ML VIAL IV PRN (14:54)
[2022-08-09] MEDS ORDERED: MORPHINE 2 MG/1 ML SYRINGE IV PRN (14:54)
[2022-08-09] MEDS ORDERED: NICOTINE 21 MG/24 HR PATCH TRANSDERM PRN (14:54)
[2022-08-09] MEDS ORDERED: ACETAMINOPHEN 325 MG TABLET PO PRN (14:54)
[2022-08-09] MEDS ORDERED: DOCUSATE SODIUM 100 MG CAPSULE PO PRN (14:54)
[2022-08-09] MEDS ORDERED: GLUCAGON 1 MG VIAL IM PRN (14:54)
[2022-08-09] MEDS ORDERED: DEXTROSE 10% 250 ML BAG IV PRN (15:05)
[2022-08-09] MEDS: SODIUM CHLORIDE 0.9% 1,000 ML IV SCH (15:53)
[2022-08-09] MEDS ORDERED: ENOXAPARIN 40 MG/0.4 ML SYRINGE SUBCUT SCH (16:00)
[2022-08-09] MEDS ORDERED: SODIUM CHLORIDE 0.9% 1,000 ML IV PRN (16:15)
[2022-08-09 16:25] LABS: Folate 11.85 NG/ML (5.38-24.0)
[2022-08-09 16:27] LABS: % Iron Saturation 3.2 % (18-50); Ferritin 23.6 ng/mL (8-252)
[2022-08-09] MEDS: INSULIN LISPRO 100 UNIT/ML SUBCUT SCH ×2 (16:58→21:46)
[2022-08-09 19:07] LABS: Mucus,Urine Occasional /LPF (Occasional); RBC,Urine 1 /HPF (0-4); Squamous Epithelial Cell,Urine Occasional /HPF (0-10)
[2022-08-09 19:08] LABS: Bilirubin,Urine Negative (Negative); Blood, Urine Negative (Negative); Glucose,Urine (UA) >=1000 mg/dL (Negative); Ketones,Urine Negative (Negative); Nitrite,Urine Negative (Negative); Protein,Urine Negative (Negative); Urine Appearance Clear (Clear); Urine Color Yellow (Yellow); Urine Specific Gravity 1.015 (1.001-1.035); Urine Urobilinogen 0.2 eU/dL (<2.0)
[2022-08-09] MEDS ORDERED: ASPIRIN EC 325 MG TABLET PO SCH (21:00)
[2022-08-10] MEDS: SODIUM CHLORIDE 0.9% 1,000 ML IV SCH (04:24)
[2022-08-10 06:32] LABS: Basophils # 0.1 10*3/uL (0.0-0.2); Eosinophils # 0.3 10*3/uL (0.0-0.87); Hemoglobin 6.7 GM/DL (12.0-16.0); Immature Granulocytes % 0.7 %; Immature Granulocytes Absolute 0.06 #; Lymphocytes % 22.3 % (21.3-54.2); Mean Corpuscular HGB Conc 29.1 GM/DL (32-36); Mean Corpuscular Volume 77.7 FL (87-102); Mean Platelet Volume 10.1 FL (9.6-12.0); Monocytes # 0.8 10*3/uL (0.11-0.8); Monocytes % 9.3 % (1.7-12.7); Neutrophils % 63.7 % (38.7-73.9); Platelet Count 547 T/CUMM (130-400); Red Blood Count 2.96 MC/CUMM (3.8-5.5); Red Cell Distribution Width 16.1 % (9.3-17.3)
[2022-08-10 06:53] LABS: Alanine Aminotransferase 15 U/L (13-56); Albumin 2.9 G/DL (3.4-5.0); Alkaline Phosphatase 126 U/L (45-117); Aspartate Amino Transferase 9 U/L (0-37); Bilirubin,Total < 0.39 MG/DL (0.20-1.00); Blood Urea Nitrogen 11 MG/DL (7-18); Calcium 8.4 MG/DL (8.5-10.1); Carbon Dioxide 20 MMOL/L (21-32); Chloride 112 MMOL/L (98-107); Cholesterol 175 MG/DL (50-200); Glucose 161 MG/DL (74-106); HDL Cholesterol 30 MG/DL (40-60); Osmolality,Calculated 282.3 MOS/KG (273-304); Potassium 3.7 MMOL/L (3.5-5.1); Risk Ratio 5.83; Sodium 141 MMOL/L (136-145); Total Protein 7.3 G/DL (6.4-8.2); Triglycerides 221 MG/DL (2-150); VLDL Cholesterol 44.2 MG/DL
[2022-08-10] MEDS: PANTOPRAZOLE 40 MG TABLET PO SCH ×2 (08:37→20:46)
[2022-08-10] MEDS: LOSARTAN 25 MG TABLET PO SCH (08:37)
[2022-08-10] MEDS: FERROUS SULFATE 325 MG TABLET PO SCH ×2 (08:37→20:46)
[2022-08-10] MEDS: ASPIRIN EC 81 MG TABLET PO SCH (08:37)
[2022-08-10] MEDS: INSULIN LISPRO 100 UNIT/ML SUBCUT SCH ×4 (08:44→20:47)
[2022-08-10] MEDS ORDERED: DEXTROSE 50% 25 GM/50 ML VIAL IV PRN (08:49)
[2022-08-10] MEDS ORDERED: GLUCAGON 1 MG VIAL IM PRN (08:49)
[2022-08-10] MEDS ORDERED: PANTOPRAZOLE 40 MG TABLET PO SCH (09:00)
[2022-08-10] MEDS ORDERED: CHOLECALCIFEROL 5,000 UNIT TABLET PO SCH (09:00)
[2022-08-10] MEDS ORDERED: MELATONIN 3 MG TABLET PO PRN (10:09)
[2022-08-10] MEDS: ONDANSETRON 4 MG/2 ML VIAL IV PRN (12:11)
[2022-08-10] MEDS: ROSUVASTATIN 20 MG TABLET PO SCH (20:46)
[2022-08-11 05:02] LABS: Basophils # 0.1 10*3/uL (0.0-0.2); Basophils % 1.4 % (0.0-0.8); Eosinophils # 0.3 10*3/uL (0.0-0.87); Eosinophils % 3.4 % (0.00-10.9); Hematocrit 28.7 VOL% (35.7-47.0); Hemoglobin 8.7 GM/DL (12.0-16.0); Immature Granulocytes % 0.7 %; Immature Granulocytes Absolute 0.06 #; Lymphocytes # 2.3 10*3/uL (1.4-4.0); Lymphocytes % 26.4 % (21.3-54.2); Mean Corpuscular HGB Conc 30.3 GM/DL (32-36); Mean Corpuscular Volume 79.1 FL (87-102); Mean Platelet Volume 8.9 FL (9.6-12.0); Monocytes # 0.9 10*3/uL (0.11-0.8); Monocytes % 9.6 % (1.7-12.7); Neutrophils % 58.5 % (38.7-73.9); Platelet Count 610 T/CUMM (130-400); Red Blood Count 3.63 MC/CUMM (3.8-5.5); Red Cell Distribution Width 15.6 % (9.3-17.3); White Blood Count 8.9 T/CUMM (4-12)
[2022-08-11 05:22] LABS: Calcium 8.7 MG/DL (8.5-10.1); Osmolality,Calculated 284.1 MOS/KG (273-304)
[2022-08-11] MEDS ORDERED: REGADENOSON 0.4 MG/5 ML SYRINGE IV ONE (06:58)
[2022-08-11] MEDS: INSULIN LISPRO 100 UNIT/ML SUBCUT SCH ×4 (07:16→21:25)
[2022-08-11] MEDS: FERROUS SULFATE 325 MG TABLET PO SCH ×2 (09:22→21:25)
[2022-08-11] MEDS: LOSARTAN 25 MG TABLET PO SCH (09:22)
[2022-08-11] MEDS: PANTOPRAZOLE 40 MG TABLET PO SCH ×2 (09:22→21:25)
[2022-08-11] MEDS: ASPIRIN EC 81 MG TABLET PO SCH (09:22)
[2022-08-11] MEDS: ONDANSETRON 4 MG/2 ML VIAL IV PRN (09:28)
[2022-08-11] MEDS: CHOLECALCIFEROL 5,000 UNIT TABLET PO SCH ×2 (12:10→21:25)
[2022-08-11] MEDS: ROSUVASTATIN 20 MG TABLET PO SCH (21:24)
[2022-08-12 08:02] LABS: Basophils # 0.1 10*3/uL (0.0-0.2); Basophils % 1.4 % (0.0-0.8); Eosinophils # 0.3 10*3/uL (0.0-0.87); Eosinophils % 3.5 % (0.00-10.9); Hematocrit 31.5 VOL% (35.7-47.0); Hemoglobin 9.5 GM/DL (12.0-16.0); Immature Granulocytes % 0.9 %; Immature Granulocytes Absolute 0.08 #; Lymphocytes # 2.1 10*3/uL (1.4-4.0); Lymphocytes % 24.5 % (21.3-54.2); Mean Corpuscular HGB Conc 30.2 GM/DL (32-36); Mean Corpuscular Volume 78.2 FL (87-102); Mean Platelet Volume 8.9 FL (9.6-12.0); Monocytes # 0.7 10*3/uL (0.11-0.8); Monocytes % 8.1 % (1.7-12.7); Neutrophils % 61.6 % (38.7-73.9); Platelet Count 616 T/CUMM (130-400); Red Blood Count 4.03 MC/CUMM (3.8-5.5); Red Cell Distribution Width 15.8 % (9.3-17.3); White Blood Count 8.7 T/CUMM (4-12)
[2022-08-12 08:18] LABS: Calcium 9.3 MG/DL (8.5-10.1); Osmolality,Calculated 283.4 MOS/KG (273-304)
[2022-08-12 08:24] VITALS: BP 148/61
[2022-08-12] MEDS: PANTOPRAZOLE 40 MG TABLET PO SCH (08:58)
[2022-08-12] MEDS: ASPIRIN EC 81 MG TABLET PO SCH (08:58)
[2022-08-12] MEDS: CHOLECALCIFEROL 5,000 UNIT TABLET PO SCH (08:58)
[2022-08-12] MEDS: FERROUS SULFATE 325 MG TABLET PO SCH (08:58)
[2022-08-12] MEDS: INSULIN LISPRO 100 UNIT/ML SUBCUT SCH ×2 (08:58→12:21)
[2022-08-12] MEDS: LOSARTAN 25 MG TABLET PO SCH (09:03)
[2022-08-13] MEDS ORDERED: BISACODYL 5 MG TABLET PO ONE (12:00)
[2022-08-13] MEDS ORDERED: POLYETHYLENE GLYCOL 3350/ELECTROLYTES 4,000 ML BOTTLE PO ONE (18:00)
== END 2022-08-12 11:30 | disposition home or self-care (01) ==
LOC: EDUNIT# → N.EDINP 12:44 → N.ED 12:44 → SUATTDRO 14:58 → N.TELEN 17:12
PROVIDERS: ADMIT Internal Medicine; ATTEND Internal Medicine